=== PATIENT | male | born 1990 | race Two or more races ===

== ENCOUNTER 2023-12-29 14:51 | Emergency (ER) | payer OTHER ==
[~2023-12-29] VITALS: Ht 172.7 cm; Wt 72.7 kg
[2023-12-29 16:07] VITALS: BP 141/82; PULSE 74; RESP 14; TEMP 98.1; O2SAT 95
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
[2023-12-29] MEDS ORDERED: NAPR-746 PO (17:01)
[2023-12-29] MEDS ORDERED: METH-1181 PO (17:01)
[2023-12-29] MEDS: HYDROcodone-ACET 10/325MG TAB PO ONE (17:04)
== END 2023-12-29 17:01 | disposition home or self-care (01) ==
LOC: EDBD 14:51 → ER 14:51
DX: S63.8X2A Sprain of other part of left wrist and hand, initial encounter (principal); Z79.899 Other long term (current) drug therapy; V89.2XXA Person injured in unspecified motor-vehicle accident, traffic, initial encounter; Y93.I9 Activity, other involving external motion; Y92.411 Interstate highway as the place of occurrence of the external cause; Y99.8 Other external cause status
CPT/HCPCS: 73130